=== PATIENT | male | born 1960 | race Caucasian/White ===

== ENCOUNTER 2022-06-04 06:00 | Day surgery (SDC) | payer BC ==
[~2022-06-04 06:00] MED LIST: Lactated Ringers 1,000 ML IV SCH; Lidocaine 1%/Sod Bicarbonate in NS 8.4% 1 ML Syringe IDERM PRN; Sodium Chloride 0.9% 10 ML Syringe FLUSH PRN; Sodium Chloride 0.9% 10 ML Syringe FLUSH SCH; ceFAZolin 2 GM in Sodium Chloride 0.9% 50 ML IV ONE
[2022-06-04] MEDS ORDERED: Lidocaine 1% 10 ML MDV ONE (06:07)
[2022-06-04] MEDS ORDERED: Triamcinolone Acetonide 40 MG/ML 1 ML SDV ONE (06:07)
[2022-06-04] MEDS ORDERED: Bupivacaine 0.25% 10 ML SDV ONE (06:07)
[2022-06-04] MEDS ORDERED: ceFAZolin 2 GM Vial ONE (06:36)
== END 2022-06-04 07:47 | disposition home or self-care (01) ==
LOC: JD.SDS 06:00
PROVIDERS: ATTEND Orthopaedic Surgery
DX: G56.01 Carpal tunnel syndrome, right upper limb (principal); G56.11 Other lesions of median nerve, right upper limb; I11.0 Hypertensive heart disease with heart failure; I50.9 Heart failure, unspecified; I25.10 Atherosclerotic heart disease of native coronary artery without angina pectoris; E78.5 Hyperlipidemia, unspecified; Z88.5 Allergy status to narcotic agent; Z79.82 Long term (current) use of aspirin; Z79.899 Other long term (current) drug therapy; Z72.0 Tobacco use
CPT/HCPCS: J0690; J3301; J3490

== ENCOUNTER 2022-07-15 06:15 | Day surgery (SDC) | payer BC ==
[~2022-07-15 06:15] MED LIST changes: -ceFAZolin 2 GM in Sodium Chloride 0.9% 50 ML IV ONE
[2022-07-15] MEDS ORDERED: Bupivacaine 0.25% 10 ML SDV ONE (06:30)
[2022-07-15] MEDS ORDERED: Lidocaine 1% 10 ML MDV ONE (06:30)
[2022-07-15] MEDS ORDERED: ceFAZolin 2 GM Vial ONE (07:00)
== END 2022-07-15 07:38 | disposition home or self-care (01) ==
LOC: JD.SDS 06:15
PROVIDERS: ATTEND Orthopaedic Surgery
DX: G56.02 Carpal tunnel syndrome, left upper limb (principal); G56.12 Other lesions of median nerve, left upper limb; I10 Essential (primary) hypertension; E78.5 Hyperlipidemia, unspecified; I25.10 Atherosclerotic heart disease of native coronary artery without angina pectoris; F17.220 Nicotine dependence, chewing tobacco, uncomplicated; Z98.890 Other specified postprocedural states; Z79.899 Other long term (current) drug therapy; Z95.1 Presence of aortocoronary bypass graft; Z88.2 Allergy status to sulfonamides; Z88.6 Allergy status to analgesic agent
CPT/HCPCS: 64721; J0690; J3490; J7120